=== PATIENT | male | born 1990 | race Caucasian/White ===

== ENCOUNTER 2017-08-25 16:20 | Emergency (ER) | payer OTHER ==
[2017-08-25 16:52] VITALS: BP 151/69
--- NOTE | 2017-08-25 18:05 | UC ---
Throat Pain/Nasal Ezekiel HPI - HPI Summary HPI Summary: ONE WEEK SORE THROAT, PRODUCTIVE COUGH, BILATERAL EAR PRESSURE, FEVER, - History of Current Complaint Chief Complaint: UCRespiratory Stated Complaint: EZEKIEL,AARON Time Seen by Provider: 08/25/17 17:42 Hx Obtained From: Patient Onset/Duration: Gradual Onset, Lasting Weeks Severity: Moderate Cough: Productive Associated Signs & Symptoms: Positive: Hoarseness, Sinus Discomfort, Nasal Discharge, Fever - Epiglottits Risk Factors Epiglottis Risk Factors: Negative - Allergies/Home Medications Allergies/Adverse Reactions: Allergies Allergy/AdvReac Type Severity Reaction Status Date / Time No Known Allergies Allergy Verified 08/25/17 16:46 PMH/Surg Hx/FS Hx/Imm Hx Previously Healthy: Yes Other History Of: Negative For: Anticoagulant Therapy - Surgical History Surgical History: Yes Surgery Procedure, Year, and Place: TRACHOESTOMY - due to facial infection - Family History Known Family History: Positive: None Negative: Respiratory Disease - Social History Occupation: Employed Full-time Lives: With Family Alcohol Use: Weekly Alcohol Amount: 2xweek Substance Use Type: Marijuana Substance Use Comment - Amount & Last Used: 08/25/17 Smoking Status (MU): Current Some Day Smoker Type: Cigarettes Amount Used/How Often: social smoker - Immunization History Most Recent Influenza Vaccination: no Review of Systems Constitutional: Negative Skin: Negative Eyes: Negative ENT: Sore Throat, Ear Ache, Sinus Congestion, Sinus Pain/Tenderness Respiratory: Cough Cardiovascular: Negative Gastrointestinal: Negative Genitourinary: Negative Motor: Negative Neurovascular: Negative Musculoskeletal: Negative Neurological: Negative Psychological: Negative Is Patient Immunocompromised?: No All Other Systems Reviewed And Are Negative: Yes Physical Exam Triage Information Reviewed: Yes Appearance: No Pain Distress, Well-Nourished, Ill-Appearing - MILDLY Vital Signs: Initial Vital Signs Temp 97.9 F 08/25/17 16:46 Pulse 84 08/25/17 16:46 Resp 20 08/25/17 16:46 BP 151/69 08/25/17 16:46 Pulse Ox 100 08/25/17 16:46 Vital Signs Reviewed: Yes Eye Exam: Normal ENT: Positive: Nasal congestion, TM bulging, TM dull, TM red, Sinus tenderness Dental Exam: Normal Neck exam: Normal Neck: Positive: Supple, Nontender, No Lymphadenopathy Respiratory Exam: Other - COUGH Respiratory: Positive: Chest non-tender, Lungs clear, Normal breath sounds, No respiratory distress, No accessory muscle use Cardiovascular Exam: Normal Cardiovascular: Positive: RRR, No Murmur, Pulses Normal Abdominal Exam: Normal Abdomen Description: Positive: Nontender Musculoskeletal Exam: Normal Neurological Exam: Normal Psychological Exam: Normal Skin Exam: Normal Throat Pain/Nasal Course/Dx - Differential Dx/Diagnosis Differential Diagnosis/HQI/PQRI: Otitis Media, Pharyngitis, Sinusitis, URI Provider Diagnoses: SINUSITIS; BRONCHITIS Discharge - Discharge Plan Condition: Stable Disposition: HOME Prescriptions: Amoxicillin/Clavulanate TAB* [Augmentin TAB 875*] 875 mg PO BID #20 tab Benzonatate CAP* [Tessalon 100 MG CAP*] 100 mg PO TID PRN #15 cap PRN Reason: Cough predniSONE TAB* [Deltasone TAB*] 10 mg PO DAILY #28 tab Patient Education Materials: Sinusitis (ED), Acute Bronchitis (ED) Referrals: [facility] [place] [facility] [Outside] No Primary Care Phys,NOPCP [Primary Care Provider] -
== END 2017-08-25 18:04 | disposition home or self-care (01) ==
LOC: UCCORT 16:20
DX: F12.90 Cannabis use, unspecified, uncomplicated (principal); Z72.0 Tobacco use; J32.9 Chronic sinusitis, unspecified; J40 Bronchitis, not specified as acute or chronic
CPT/HCPCS: 99212; G0463

== ENCOUNTER 2017-09-07 19:22 | Emergency (ER) | payer OTHER ==
[2017-09-07 19:55] VITALS: BP 153/69
--- NOTE | 2017-09-07 20:31 | UC ---
Respiratory Complaint HPI - HPI Summary HPI Summary: 27 year old male with history of asthma no prior intubation, recent treatment for sinusitis s/p 10 days of Augmentin that he completed few days ago here for persistent cough despite abx treatment. Patient still smoking, about 1PPD. He has not been using his asthma meds because he is out of his albuterol solution. No n/v/d/. No paroxysmal cough. - History of Current Complaint Chief Complaint: UCGeneralIllness Stated Complaint: COUGH, AND SINUS CONGESTION Time Seen by Provider: 09/07/17 20:00 Onset/Duration: Gradual Onset, Lasting Weeks Timing: Constant Severity Initially: Mild Severity Currently: Mild Aggravating Factors: Nothing Alleviating Factors: Nothing Associated Signs And Symptoms: Positive: Negative - Allergies/Home Medications Allergies/Adverse Reactions: Allergies Allergy/AdvReac Type Severity Reaction Status Date / Time No Known Allergies Allergy Verified 09/07/17 19:46 Home Medications: Home Medications Albuterol HFA INHALER* [Ventolin HFA Inhaler*] 1 puff INH Q4H PRN 09/07/17 [ History Confirmed 09/07/17] PMH/Surg Hx/FS Hx/Imm Hx Other History Of: Negative For: Anticoagulant Therapy - Surgical History Surgical History: Yes Surgery Procedure, Year, and Place: 2012 - TRACHOESTOMY - due to facial infection - Family History Known Family History: Positive: None Negative: Respiratory Disease - Social History Alcohol Use: Weekly Alcohol Amount: 2xweek 12 pack each time Substance Use Type: Marijuana Substance Use Comment - Amount & Last Used: 08/25/17 Smoking Status (MU): Current Some Day Smoker Type: Cigarettes Amount Used/How Often: 1 PPD - Immunization History Most Recent Influenza Vaccination: no Review of Systems Constitutional: Negative Skin: Negative Eyes: Negative ENT: Negative Respiratory: Negative Cardiovascular: Negative Gastrointestinal: Negative Genitourinary: Negative Motor: Negative Neurovascular: Negative Musculoskeletal: Negative Neurological: Negative Psychological: Negative All Other Systems Reviewed And Are Negative: Yes Physical Exam Triage Information Reviewed: Yes Appearance: Well-Appearing, No Pain Distress Vital Signs: Initial Vital Signs Temp 37.0 C 09/07/17 19:48 Pulse 67 09/07/17 19:48 Resp 20 09/07/17 19:48 BP 153/69 09/07/17 19:48 Pulse Ox 97 09/07/17 19:48 Eye Exam: Normal ENT: Positive: Pharyngeal erythema Neck exam: Normal Respiratory: Positive: Wheezing Cardiovascular: Positive: RRR, No Murmur, Pulses Normal Abdominal Exam: Normal Musculoskeletal Exam: Normal Skin Exam: Normal UC Diagnostic Evaluation - Laboratory O2 Sat by Pulse Oximetry: 97 Respiratory Course/Dx - Course Course Of Treatment: Asthma exacerbation. BP noted to be elevated. He would need PMD follow up with that. He is looking for a new pmd. I had an extensive discussion with patient about smoking cessation. - Differential Dx/Diagnosis Provider Diagnoses: Asthma exacerbation Discharge - Discharge Plan Condition: Good Disposition: HOME Prescriptions: Albuterol/Ipratropium NEB.DUGLAS* [Duoneb (Albuterol 2.5 MG/Ipratropium 0.5 MG)] 1 neb INH Q6H PRN #30 neb.duglas PRN Reason: Cough predniSONE TAB* [Deltasone TAB*] 50 mg PO DAILY #5 tab Patient Education Materials: Bronchospasm (ED), How to Stop Smoking (ED) Referrals: No Primary Care Phys,NOPCP [Primary Care Provider] - Additional Instructions: You need to stop smoking for your symptoms to improve. Your blood pressure was elevated here, and you need to follow up with primary care doctor for a second evaluation.
[2017-09-07] MEDS ORDERED: predniSONE TAB* 20 MG ONE (20:32)
[2017-09-07] MEDS ORDERED: predniSONE TAB* 10 MG ONE (20:33)
[2017-09-07] MEDS: predniSONE TAB* 10 MG PO ONE (20:35)
[2017-09-07] MEDS: predniSONE TAB* 20 MG PO ONE (20:35)
[2017-09-07] MEDS: Albuterol/Ipratropium NEB.SOL* Albuterol 2.5 MG/Ipratropium 0.5 MG 3 ML INH ONE (20:36)
[2017-09-07] MEDS: predniSONE TAB* 50 MG PO ONE (20:40)
[2017-09-07] MEDS: Albuterol HFA INHALER* 8 gm MDI INH ONE (21:38)
== END 2017-09-07 21:35 | disposition home or self-care (01) ==
LOC: UCEAST 19:22
DX: J45.901 Unspecified asthma with (acute) exacerbation (principal); Z72.0 Tobacco use; Z72.89 Other problems related to lifestyle; F12.90 Cannabis use, unspecified, uncomplicated
CPT/HCPCS: 99213; A9270-GY; G0463; J7512

== ENCOUNTER → 2019-02-14 02:29 | Emergency (ER) | payer OTHER ==
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
[2019-02-14 04:12] VITALS: BP 139/78
== END | disposition home or self-care (01) ==
LOC: ED 02:29
DX: M25.562 Pain in left knee (principal); J45.909 Unspecified asthma, uncomplicated; F17.210 Nicotine dependence, cigarettes, uncomplicated
CPT/HCPCS: 99282

== ENCOUNTER 2019-06-13 23:12 | Emergency (ER) | payer OTHER ==
--- NOTE | 2019-06-13 23:47 | ED ---
Influenza-Like Illness - HPI Summary HPI Summary: Patient complains of productive cough, fever up to 102.5, body aches, shortness of breath improved with inhaler x 2 days. Cough keeping patient up at night. Clear phlegm produced. Patient has history of asthma with inhaler and nebulizer at home. Denies nasal discharge, ear pain, sore throat, CP, N/V/D, abdominal pain, change in urine, change in BM. Medical history is asthma. - History of Current Complaint Chief Complaint: EDUpperRespComplaint Time Seen by Provider: 06/13/19 23:41 Hx Obtained From: Patient Onset/Duration: Gradual Onset, Lasting Days Severity: Moderate Associated Signs & Symptoms: Fever, Myalgia, Cough - Allergy/Home Medications Allergies/Adverse Reactions: Allergies Allergy/AdvReac Type Severity Reaction Status Date / Time No Known Allergies Allergy Verified 06/13/19 23:53 PMH/Surg Hx/FS Hx/Imm Hx Endocrine/Hematology History: Denies: Hx Anticoagulant Therapy, Hx Diabetes, Hx Thyroid Disease Cardiovascular History: Denies: Hx Hypertension, Hx Pacemaker/ICD Respiratory History: Reports: Hx Asthma, Other Respiratory Problems/Disorders - tracheostomy 02/26/2013 Denies: Hx Chronic Obstructive Pulmonary Disease (COPD) GI History: Denies: Hx Ulcer History: Denies: Hx Renal Disease Sensory History: Denies: Hx Hearing Aid Opthamlomology History: Denies: Hx Legally Blind EENT History: Denies: Hx Deafness Neurological History: Denies: Hx Dementia, Hx Seizures Psychiatric History: Denies: Hx Panic Disorder, Hx Substance Abuse - Surgical History Surgery Procedure, Year, and Place: 2012 - TRACHOESTOMY - due to facial infection Infectious Disease History: No Infectious Disease History: Denies: Hx Clostridium Difficile, Hx Hepatitis, Hx Human Immunodeficiency Virus (HIV), Hx of Known/Suspected MRSA, Hx Shingles, Hx Tuberculosis, Hx Known/ Suspected VRE, Hx Known/Suspected VRSA, History Other Infectious Disease, Traveled Outside the [place] in Last 30 Days - Family History Known Family History: Negative: Respiratory Disease - Social History Alcohol Use: Weekly Alcohol Amount: 2xweek 12 pack each time Substance Use Type: Reports: Marijuana Substance Use Comment - Amount & Last Used: 08/25/17 Smoking Status (MU): Current Some Day Smoker Type: Cigarettes Amount Used/How Often: 1 PPD Review of Systems Positive: Fever Eyes: Negative ENT: Negative Cardiovascular: Negative Positive: Shortness Of Breath, Cough Gastrointestinal: Negative Genitourinary: Negative Positive: Myalgia Skin: Negative Neurological: Negative Psychological: Normal All Other Systems Reviewed And Are Negative: Yes Physical Exam Triage Information Reviewed: Yes Vital Signs On Initial Exam: Initial Vitals Temp Pulse Resp BP Pulse Ox 97.6 F 109 18 149/93 97 06/13/19 23:16 06/13/19 23:16 06/13/19 23:16 06/13/19 23:16 06/13/19 23:16 Vital Signs Reviewed: Yes Appearance: Positive: Well-Appearing Skin: Positive: Warm Head/Face: Positive: Normal Head/Face Inspection Eyes: Positive: Normal ENT: Positive: Normal ENT inspection Neck: Positive: Supple Respiratory/Lung Sounds: Positive: Clear to Auscultation Cardiovascular: Positive: Normal Abdomen Description: Positive: Nontender Musculoskeletal: Positive: Normal Neurological: Positive: Normal Psychiatric: Positive: Normal AVPU Assessment: Alert - [place] Coma Scale Best Eye Response: 4 - Spontaneous Best Motor Response: 6 - Obeys Commands Best Verbal Response: 5 - Oriented Coma Scale Total: 15 Diagnostics - Vital Signs Vital Signs Temp Pulse Resp BP Pulse Ox 06/13/19 23:16 97.6 F 109 18 149/93 97 - Laboratory Lab Statement: Any lab studies that have been ordered have been reviewed, and results considered in the medical decision making process. Flu Symptom Course/Dx - Course Course Of Treatment: Patient complains of productive cough, fever up to 102.5, body aches, shortness of breath improved with inhaler x 2 days. Cough keeping patient up at night. Clear phlegm produced. Patient has history of asthma with inhaler and nebulizer at home. Denies nasal discharge, ear pain, sore throat, CP, N/V/D, abdominal pain, change in urine, change in BM. Medical history is asthma. Vital signs within normal limits. X-ray chest negative. Patient's cough improved with Tessalon Perles. Diagnosis viral syndrome. Patient has inhaler nebulizer at home for asthma. - Diagnoses Provider Diagnoses: Viral syndrome Discharge ED - Sign-Out/Discharge Documenting (check all that apply): Patient Departure Patient Received Moderate/Deep Sedation with Procedure: No - Discharge Plan Condition: Stable Disposition: HOME Prescriptions: Benzonatate CAP* [Tessalon 100 MG CAP*] 200 mg PO TID 6 Days #40 cap guaiFENesin/CODIEN 100MG-10MG* [Robitussin AC 100Mg-10Mg*] 10 ml PO Q4H PRN 2 Days #120 udc MDD 60ml PRN Reason: Cough Patient Education Materials: Viral Syndrome (ED) Referrals: No Primary Care Phys,NOPCP [Primary Care Provider] - Additional Instructions: Alternate ibuprofen and Tylenol every 3 hours for body aches. Follow-up with primary care. - Billing Disposition and Condition Condition: STABLE Disposition: Home - Attestation Statements Provider Attestation: I was available for consult. This patient was seen by the MARISABEL. The patient was not presented to, seen by, or examined by me. Trey Lopez MD
[2019-06-13] MEDS ORDERED: Benzonatate CAP* 100 MG PO ONE (23:50)
[2019-06-14 00:16] LABS: Influenza A Molecular NEGATIVE (Negative); Influenza B Molecular NEGATIVE (Negative)
[2019-06-14 00:58] VITALS: BP 142/87
== END 2019-06-14 00:57 | disposition home or self-care (01) ==
LOC: ED 23:12
DX: B34.9 Viral infection, unspecified (principal); J45.909 Unspecified asthma, uncomplicated; Z72.0 Tobacco use
CPT/HCPCS: 71046; 99282; A9270-GY